=== PATIENT | female | born 1945 | race Caucasian/White ===

== ENCOUNTER → 2017-10-13 17:45 | Outpatient (CLI) | payer MEDICARE, SELFPAY ==
[2017-10-13 17:47] LABS: Bacteria 0 SEEN /hpf (None Seen); Mucous, Urine 0 SEEN /hpf (<or=2+); Red Blood Cells-Urine 0 SEEN /hpf (0-5); Squamous Epithelial Cells - UA 0 SEEN /hpf (5-10); White Blood Cells 0 SEEN /hpf (0-5)
[2017-10-13 18:26] LABS: Color, Urine Yellow (Yellow); Glucose, Dipstick Normal (Normal); Ketone-Dipstick Negative (Negative); Leukocyte Esterase-Dipstick Negative /ul (Negative); Nitrite-Dipstick Negative (Negative); Occult Blood-Urine Negative /ul (Negative); Protein-Dipstick Negative (Negative); Urine Bilirubin Dipstick Negative (Negative); Urine Clarity Clear (Clear); Urine Urobilinogen Normal (Normal)
== END ==
PROVIDERS: Family Provider Family Medicine; PCP Family Medicine; Visit Provider Physician Assistant Medical
DX: N39.0 Urinary tract infection, site not specified (principal)
CPT/HCPCS: 81001; 87086; 87088

== ENCOUNTER → 2017-11-10 09:18 | Outpatient (CLI) | payer MEDICARE, SELFPAY ==
--- NOTE | 2017-11-10 09:33 | MRI_ITS ---
STUDY: MRI THORACIC SPINE WITHOUT CONTRAST REASON FOR EXAM: Female, 72 years old. Back pain with radicular symptoms to the left shoulder for 18 months. TECHNIQUE: Standardized fat and water weighted pulse sequences were obtained in the sagittal and axial planes. Several images are limited by patient motion. COMPARISON: CT of the chest dated August 10, 2017. FINDINGS: Normal kyphosis of the thoracic spine. There is no substantial scoliosis. T1-2, T2-3, T3-4, T4-5, T5-6, T6-7, T7-8, T8-9, T9-10, T10-11, T11-12: There appear to be a subtle abnormal signal the endplates of. The there may be acute Modic changes at T7-8. There is a focus of abnormal signal within the T10 vertebral body. This is bright on the T2-weighted images and has decreased T1 signal. This may represent a hemangioma. There is a large Schmorl's node of the superior endplate T12 with probable mild compression fracture. This has appearance of an old fracture. There is a focal left central disc protrusion at T6-7. The discs have generally normal MR appearance otherwise. The neural foramina are patent. There is no significant central acquired canal stenosis..There is no disc herniation. Normal visualized thoracic cord. Normal conus medullaris that terminates at the L1 level.. There are areas of abnormal signal within the liver, the largest of which is incompletely visualized on this study. MRI/Spine Thoracic (Routine) IMPRESSION: 1. 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 2. Probably old mild compression fracture of T12. 3. Large incompletely imaged liver cyst. Electronically Signed: Shamika Toht MD at 13:26 EDT , Service support ,
== END ==
PROVIDERS: Family Provider Family Medicine; PCP Family Medicine; Visit Provider Family Medicine
DX: M71.38 Other bursal cyst, other site (principal); M51.34 Other intervertebral disc degeneration, thoracic region
CPT/HCPCS: 72146

== ENCOUNTER → 2018-01-08 09:26 | Outpatient (CLI) | payer MEDICARE, SELFPAY ==
[2018-01-08 12:09] LABS: Absolute Lymphocyte Count 0.96 X10^3/ul (0.83-4.51); Absolute Neutrophil Count 3.1 X10^3/uL (2.0-7.7); Basophil# 0.03 X10^3/uL; Basophil% 0.7 % (0-1); Eosinophil# 0.04 X10^3/uL; Eosinophils% 0.9 % (0-5); Hematocrit 46.5 % (37-47); Hemoglobin 15.4 g/dl (12.0-15.0); Lymphocyte # 0.96 X10^3/ul (4.0); Lymphocyte % 21.7 % (19-41); Mean Corp Hgb Conc 33.1 g/gl (32-36); Mean Corpuscular Hgb 30.7 pg (27.0-32.0); Mean Corpuscular Volume 92.8 fL (81-99); Mean Platelet Vol. 10.3 fl (6.2-12.0); Monocyte# 0.34 X10^3/uL; Monocyte% 7.7 % (0-10); Neutrophil # 3.05 X10^3/uL (2.7-7.7); Neutrophil % 68.8 % (47-70); Platelet Count 232 K/mm3 (150-450); RBC Distribution Width CV 13.5 % (11.6-14.6); RBC Distribution Width SD 44.4 fl (35.1-43.9); Red Blood Count 5.01 M/mm3 (4.2-5.4); White Blood Count 4.4 K/mm3 (4.4-11.0)
[2018-01-08 12:15] LABS: POSITIVE COUNT NO; POSITIVE DIFFERENTIAL NO; POSITIVE MORPHOLOGY NO
[2018-01-08 12:21] LABS: Vitamin D,25 Hydroxy 22.4 ng/mL (29.95-100.01)
[2018-01-08 12:46] LABS: Anion Gap 9 (5-15); BUN 15 mg/dL (7-18); BUN/Creat Ratio 17.8 RATIO (10-20); Calcium,Total 9.2 mg/dL (8.5-10.1); Chloride 104 mmol/L (98-107); Creatinine, Serum 0.84 mg/dL (0.55-1.02); EST Glomerular Filtration Rate 70 mL/min (>60); Est Glom Filt Rate - Afr Amer 85 mL/min (>60); Glucose 104 mg/dL (74-106); Potassium 4.1 mmol/L (3.5-5.1); Sodium Level 139 mmol/L (136-145); Thyroid Stim Hormone (TSH) 1.95 uIU/mL (0.358-3.74)
[2018-01-08 12:56] LABS: Hemoglobin A1c 5.9 % (4.2-6.3)
== END ==
PROVIDERS: Family Provider Family Medicine; PCP Family Medicine; Visit Provider Family Medicine
DX: S22.080A Wedge compression fracture of T11-T12 vertebra, initial encounter for closed fracture (principal); E04.1 Nontoxic single thyroid nodule; R91.1 Solitary pulmonary nodule; R73.01 Impaired fasting glucose; E55.9 Vitamin D deficiency, unspecified
CPT/HCPCS: 36415; 80048; 82306; 83036; 84439; 84443; 85025

== ENCOUNTER → 2018-01-16 13:27 | Outpatient (CLI) | payer MEDICARE, SELFPAY ==
--- NOTE | 2018-01-16 13:30 | US_ITS ---
STUDY: THYROID ULTRASOUND REASON FOR EXAM: Female, 73 years old. Thyroid nodules TECHNIQUE: Ultrasound evaluation of the thyroid was performed with real-time and static carranza-scale imaging. COMPARISON: CT chest 08/10/2017. FINDINGS: On prior CT scan, hypoattenuating sharply circumscribed oval nodule of the left thyroid inferior pole with AP dimension measuring about 16.5 mm. The craniocaudal dimension was approximately 1.79 cm, and the transverse dimension approximately 1.3 cm. RIGHT LOBE: 4.1 x 1.8 x 1.5 cm. Normal echotexture and vascularity. No nodules. LEFT LOBE: 4.4 x 1.6 x 1.1 cm. Normal background echotexture of the gland with normal vascularity. Hypoechoic sharply circumscribed oval nodule measures 16 x 18 x 8 mm, exhibits peripheral and internal vascular flow, small cystic spaces centrally, peripherally solid. ISTHMUS: The isthmus measures 4 mm normal echotexture. US/Thyroid IMPRESSION: Left thyroid nodule. 16 x 18 x 8 mm. Cystic and solid. According to the [place] Thy[employer] Guidelines for assessment of thyroid nodules this falls into the Low Suspicion sonographic pattern (5-10% risk). It does not appear to be substantially changed compared to prior CT imaging of July 2017. Based on the [place] Thyroid [employer] size criteria for Low Suspicion Pattern nodules, size greater than 1.5 cm, biopsy is recommended. Electronically Signed: Amarjit Mejia, at 16:10 EDT Tel , Service support ,
--- NOTE | 2018-01-16 14:30 | BD_ITS ---
STUDY: DUAL ENERGY X-RAY ABSORPTIOMETRY / DXA REASON FOR EXAM: Female, 73 years old. The patient is postmenopausal. Loss of height. TECHNIQUE: Bone Mineral Density (BMD) measurements of lumbar spine and bilateral hips were obtained. COMPARISON: Comparison is made with prior study dated July 17, 2001. FINDINGS: Lumbar Spine (L1-L4): g/cm2 (1.171) / T-score (-0.2) / Z-score (1.5) Findings are suggestive of normal bone density with a low fracture risk. Left Femur Total: g/cm2 (1.160) / T-score (1.2) / Z-score (2.9) Left Femoral Neck: g/cm2 (0.976) / T-score (-0.4) / Z-score (1.4) Right Femur Total: g/cm2 (1.051) / T-score (0.3) / Z-score (2.0) Right Femoral Neck: g/cm2 (0.947) / T-score (-0.7) / Z-score (1.2) The T-Scores on the most recent prior examination were: Lumbar Spine (L1-L4): There has been improvement of bone density since the previous examination. Left Femur Total: which represents a worsening of 5.5%. BD/Dexa Bone Density Study IMPRESSION: The patient is considered normal as outlined below according to World [employer] Organization (WHO) criteria with a low fracture risk. There has been worsening of bone density since the previous examination. Reference Information: The T-score is the number of standard deviations above or below the standard which is normal for young adults at their peak bone mineral density. The World Health Organization (WHO) interprets the T-scores as follows: Above -1 Normal bone density Between -1 and -2.5 Osteopenia Equal to / or below -2.5 Osteoporosis As a practical clinical guideline, osteopenia may be graded as follows: Mild -1 through -1.5 Moderate -1.6 through -2.0 Severe -2.1 through -2.4 The Z-score is the number of standard deviations above or below age-matched controls. A Z-score of less than -1.5 would be considered abnormal. References: 1. NIH Osteoporosis and Related Bone Diseases http://www.osteo.org 2. International Society for Clinical Densitometry http://www.iscd.org 3. National Osteoporosis Foundation http://www.nof.org Electronically Signed: Ab Peck MD at 15:40 EDT Tel [phone], Service support ,
== END ==
PROVIDERS: Family Provider Family Medicine; PCP Family Medicine; Visit Provider Family Medicine
DX: S22.080A Wedge compression fracture of T11-T12 vertebra, initial encounter for closed fracture (principal); E04.1 Nontoxic single thyroid nodule
CPT/HCPCS: 76536; 77080

== ENCOUNTER → 2018-02-14 13:30 | Outpatient (CLI) | payer MEDICARE, SELFPAY ==
--- NOTE | 2018-02-14 | ASPS_PTH ---
PATIENT: BEKAH RUEDA LOC: [facility] U#:[id number] AGE/SX: 80/F ROOM: RE02/14/[address]: Dr. Luis Felipe Ravi MD : 1945 BED: DIS: SPEC #: [id number] RECD: 02/15/18 11:33 STATUS: SUZI SAENZ #: [id number] JC: 02/14/18 00:[address]: Luis Felipe Ravi DEPT: CYTOLOGY RECD BY: Guerrero Garg ENTERED: 02/15/18 11:34 SP TYPE: ASPIRATION OTHR DR: Dr. Linwood Spain MD Tissues: Thyroid gland, NOS Procedures: Pap Stain (control) Special Stain Group II Cytology Other HEADER OPERATION: Left thyroid FNA PRE-OP DIAGNOSIS: Left thyroid nodules TISSUE SUBMITTED: Left thyroid slides (8) DIAGNOSIS CYTOLOGY Left thyroid nodule, FNA (smears): Consistent with benign follicular nodule. See cytology study and comment. SJ:trudi 02/16/18 COMMENT Correlation with clinical, radiologic findings and appropriate follow up are necessary. CYTOLOGY STUDY Slides are reviewed. The specimen is adequate for evaluation. The specimen consists of benign follicular cells. CYTOLOGY GROSS Received are eight smears labeled with the patient's name and designated per the requisition as left thyroid. Submitted for staining. 02/15/18 TC:5 [facility]: [id number]
== END ==
PROVIDERS: Family Provider Family Medicine; PCP Family Medicine; Visit Provider Surgery
DX: E04.1 Nontoxic single thyroid nodule (principal)
CPT/HCPCS: 88161; 88313

== ENCOUNTER → 2018-02-21 16:41 | Outpatient (CLI) | payer MEDICARE, SELFPAY ==
--- NOTE | 2018-02-21 | LES_PTH ---
PATIENT: BEKAH RUEDA LOC: [facility] U#:[id number] AGE/SX: 80/F ROOM: RE02/21/[address]: Dr. Luis Felipe Ravi MD : 1945 BED: DIS: SPEC #: [id number] RECD: 02/21/18 16:32 STATUS: SUZI DANY #: [id number] JC: 02/21/18 00:[address]: Luis Felipe Ravi DEPT: SURGICAL PATHOLOGY RECD BY: Amarjit Contreras ENTERED: 02/22/18 07:07 SP TYPE: Lesion OTHR DR: Dr. Linwood Spain MD Tissues: Skin of back, NOS Procedures: Surgery Specimen Level IV HEADER OPERATION: Punch biopsy back lesion PRE-OP DIAGNOSIS: Uncertain neoplasm of back TISSUE SUBMITTED: Back tissue punch biopsy MICROSCOPIC DIAGNOSIS Back lesion, punch biopsy: Malignant melanoma, invasive. See synoptic report and comment. Synoptic report: Histologic type ? superficial spreading. Breslow thickness ? 1.15 mm Ulceration ? absent Mitotic rate ? 2/mm2 Tumor infiltrating lymphocytes ? present, nonbrisk. Regression ? absent Perineural invasion ? absent Vascular invasion ? absent Tumor distance to nearest margin: Deep ? negative Lateral ? positive. SJ:trudi 03/05/18 COMMENT If this biopsy is a part of a larger lesion, the findings in this specimen may not be telemarketing representative of the entire lesion. Submitted level sections and immunostains for S100, Ripley-1, CK5/6 and P40 have been reviewed. This case is sent to [facility] for expert opinion and reviewed by Dr. Montoya and the above diagnosis is rendered, complete report is viewable in patient?s EMR.. Case has been reviewed in consultation with Dr. Kee who concurs with the above diagnosis. IDC:AM MICROSCOPIC DESCRIPTION Slides are reviewed. GROSS DESCRIPTION Received in fixative is one container labeled with the patient's name and designated punch biopsy back. The specimen consists of a punch biopsy of reynolds-brown skin measuring 0.5 cm in diameter and 0.5 cm in length. The specimen is inked and submitted entirely in one cassette. It will be bisected at the time of embedding. / ZO:mayur 02/22/18 TC:0 CPT: 39481
--- NOTE | 2018-02-21 | IMM_PTH ---
PATIENT: BEKAH RUEDA LOC: [facility] U#:[id number] AGE/SX: 80/F ROOM: RE02/21/[address]: Dr. Luis Felipe Ravi MD : 1945 BED: DIS: SPEC #: [id number] RECD: 02/23/18 10:30 STATUS: SUZI DANY #: [id number] JC: 02/21/18 00:[address]: Luis Felipe Ravi DEPT: IMMUNOHISTOCHEMISTRY RECD BY: Pablito Lopez ENTERED: 02/23/18 10:31 SP TYPE: IMMUNO OTHR DR: Dr. Linwood Spain MD Tissues: Skin of back, NOS Procedures: CK5-6 (initial) MART1 (add) P40 (add) S-100 (add) PHYSICIAN & INSTITUTION [facility] [id number] SPECIMEN INFORMATION: Tissue Source: Back tissue-punch biopsy Clinical Info: Uncertain neoplasm of back Specimen Number: [id number] CPT code: 11462, [id number] METHODOLOGY: Deparaffinized sections of prefer/formalin-fixed tissue or PAP/DQ stained slides are incubated with monoclonal/polyclonal antibodies/oligonucleotide probes. Localization is made via biotin free immunoperoxidase method. Appropriate controls are performed and reacted as expected. Results on target cell population are indicated in the following table: RESULTS: ANTIBODY / CLONE RESULT P40 (BC28) negative CK5-6 (D5 & 1684) negative S-100 (4C4.9) positive MART-1 (A-103) positive These tests were developed and their performance characteristics determined by [facility]. They may not have been cleared or approved by the U.S. Food and Drug Administration. The FDA has determined that such clearance or approval is not necessary. INTERPRETATION: Back tissue, punch biopsy: Malignant melanoma, invasive. SJ:trudi 03/05/18 Comment: This case is sent to [facility] for expert opinion and reviewed by Dr. Montoya and the above diagnosis is rendered. Case has been reviewed in consultation with Dr. Kee who concurs with the above diagnosis. IDC:AM
== END ==
PROVIDERS: Family Provider Family Medicine; PCP Family Medicine; Visit Provider Surgery
DX: D48.7 Neoplasm of uncertain behavior of other specified sites (principal)
CPT/HCPCS: 88305; 88341; 88342

== ENCOUNTER → 2018-03-08 16:54 | Outpatient (CLI) | payer MEDICARE, SELFPAY ==
--- NOTE | 2018-03-08 16:56 | CT_ITS ---
STUDY: CT CHEST WITHOUT CONTRAST REASON FOR EXAM: Female, 73 years old. Lung nodule RADIATION DOSAGE (If Supplied By Facility): CTDIvol = ( 16.14 ) mGy, DLP = ( 580.88 ) mGycm TECHNIQUE: Transaxial imaging was performed without the administration of intravenous contrast material. Multiplanar coronal and sagittal images were reformatted. Individualized dose optimization techniques were used for this CT. COMPARISON: 08/10/2017 FINDINGS: Lung windows show a stable 1 cm noncalcified nodule in the right lung base adjacent to the posterior hemidiaphragm. It is seen on axial image 79 and today's study. No other suspicious noncalcified mass or nodule is noted. There is a stable 1.3 cm calcified granuloma in the left lung base. Soft tissue windows show stable 1.6 cm hypodense nodule in the left thyroid lobe. There are stable subcentimeter axillary and mediastinal lymph nodes. No pleural or pericardial effusions, there are calcified coronary vessels. Limited cuts through the upper abdomen show a stable 3.3 cm cyst in the left lobe of the liver. Bony structures show degenerative change CT/Chest without Contrast IMPRESSION: Stable appearance of a well-defined noncalcified 1 cm nodule in the right lower lobe on axial image 79. Another six-month follow-up is recommended to assure stability. Calcified 1.3 cm granuloma in the left lung base No pleural or pericardial effusions Calcified coronary vessels Degenerative bony changes Electronically Signed: Jesús Disla MD at 9:38 EDT , Service support ,
== END ==
PROVIDERS: Family Provider Family Medicine; PCP Family Medicine; Visit Provider Family Medicine
DX: R91.1 Solitary pulmonary nodule (principal)
CPT/HCPCS: 71250

== ENCOUNTER → 2020-11-17 08:36 | Outpatient (CLI) | payer MEDICARE, SELFPAY ==
[2020-11-17 10:37] LABS: Glucose 116 mg/dL (74-106)
[2020-11-17 10:40] LABS: Vitamin D,25 Hydroxy 40.2 ng/mL
[2020-11-17 10:44] LABS: Hemoglobin A1c 5.8 % (3.8-5.6)
== END ==
PROVIDERS: PCP Family Medicine; Referring Provider Family Medicine; Visit Provider Family Medicine
DX: I10 Essential (primary) hypertension (principal); E55.9 Vitamin D deficiency, unspecified; R30.0 Dysuria
CPT/HCPCS: 36415; 82306; 82947; 83036; 87086; 87088; 87186

== ENCOUNTER → 2023-03-20 | Outpatient (CLI) | payer MEDICARE, SELFPAY ==
[2023-03-20 12:58] LABS: Absolute Lymphocyte Count 0.86 X10^3/uL (0.83-4.51); Absolute Neutrophil Count 4.8 X10^3/uL (2.0-7.7); Basophil# 0.06 X10^3/uL; Basophil% 0.9 % (0-1); Eosinophil# 0.16 X10^3/uL; Eosinophils% 2.5 % (0-5); Hematocrit 48.9 % (37-47); Hemoglobin 15.5 g/dL (12.0-15.0); Lymphocyte # 0.86 X10^3/ul (0.83-4.51); Lymphocyte % 13.5 % (19-41); Mean Corp Hgb Conc 31.7 g/dL (32-36); Mean Corpuscular Hgb 29.7 pg (27.0-32.0); Mean Corpuscular Volume 93.7 fL (81-99); Monocyte# 0.52 X10^3/uL; Monocyte% 8.1 % (0-10); NRBC Flagged by Analyzer 0 % (0-5); Neutrophil # 4.77 X10^3/uL (2.7-7.7); Neutrophil % 74.7 % (47-70); Platelet Count 228 K/mm3 (150-450); RBC Distribution Width CV 13.2 % (11.6-14.6); RBC Distribution Width SD 45.1 fl (35.1-43.9); Red Blood Count 5.22 M/mm3 (4.2-5.4); White Blood Count 6.4 K/mm3 (4.4-11.0)
[2023-03-20 13:36] LABS: Vitamin D,25 Hydroxy 62.6 ng/mL
[2023-03-20 13:39] LABS: AST(SGOT) 20 U/L (15-37); Alanine Aminotransfer ALT/SGPT 34 U/L (13-56); Alkaline Phosphatase 110 U/L (45-117); Anion Gap 7 (5-15); BUN 13 mg/dL (7-18); BUN/Creat Ratio 17.3 RATIO (10-20); Calcium,Total 9.1 mg/dL (8.5-10.1); Chloride 104 mmol/L (98-107); Cholesterol 194 mg/dL (200); Creatinine, Serum 0.75 mg/dL (0.55-1.02); EST Glomerular Filtration Rate 79 mL/min (>60); Est Glom Filt Rate - Afr Amer 96 mL/min (>60); Globulin 3.9 g/dL (2.2-4.2); Glucose 116 mg/dL (74-106); High Density Lipoprotein 35 mg/dL; Potassium 4.1 mmol/L (3.5-5.1); Protein, Total 7.9 g/dL (6.4-8.2); Sodium Level 137 mmol/L (136-145); T4 Free Direct 1.03 ng/dL (0.76-1.46); Thyroid Stim Hormone (TSH) 2.05 uIU/mL (0.358-3.74); Triglycerides 214 mg/dL; Very Low Density Lipoprotein 43 mg/dL (5-40)
== END | disposition home or self-care (01) ==
LOC: BFHLAB 09:00
PROVIDERS: PCP Nurse Practitioner Family; Referring Provider Nurse Practitioner Family; Visit Provider Nurse Practitioner Family
DX: E55.9 Vitamin D deficiency, unspecified (principal); I10 Essential (primary) hypertension; E04.1 Nontoxic single thyroid nodule
CPT/HCPCS: 36415; 80053; 80061; 82306; 84439; 84443; 85025

== ENCOUNTER → 2023-05-24 | Outpatient (CLI) | payer MEDICARE, SELFPAY | END | disposition home or self-care (01) | PROVIDERS: PCP Nurse Practitioner Family; Referring Provider Nurse Practitioner Family; Visit Provider Nurse Practitioner Family | DX: N64.52 Nipple discharge (principal) | CPT/HCPCS: 87070; 87077; 87205 ==

== ENCOUNTER → 2023-06-06 | Outpatient (CLI) | payer MEDICARE, SELFPAY ==
--- NOTE | 2023-06-06 14:08 | BI_ITS ---
MAMMOGRAPHY - BILATERAL DIAGNOSTIC REASON FOR EXAM: Female, 78 years old. RT NIPPLE DISCHARGE PERTINENT HISTORY: Non-contributory. TECHNIQUE: Digital examination. Mediolateral oblique (MLO) and craniocaudad (CC) views of both breasts were obtained. CAD: CAD was performed on this study. COMPARISON: 02/01/2017 FINDINGS: Breast Composition: The breasts are heterogeneously dense, which may obscure small masses. There are no dominant masses or suspicious calcifications. No other significant abnormalities are identified. BI/DIAG MAMM W/CAD, BILAT IMPRESSION: Stable bilateral diagnostic mammogram. Galactogram would be useful for bloody nipple discharge. ASSESSMENT CATEGORY: BIRADS Category 0: Incomplete. Need additional imaging evaluation. A letter regarding these results will be sent to the patient by the facility within 30 days. FOLLOW UP RECOMMENDATION: Additional Views are Recommended. (E) Approximately 10% of breast cancers are not detected by mammography. A normal mammogram should not delay biopsy of a clinically suspicious abnormality. Electronically Signed: Amarjit Fields MD at 14:53 EDT ,
== END | disposition home or self-care (01) ==
LOC: OPBI 14:06
PROVIDERS: PCP Nurse Practitioner Family; Referring Provider Nurse Practitioner Family; Visit Provider Nurse Practitioner Family
DX: N64.52 Nipple discharge (principal)
CPT/HCPCS: 77062; 77066; G0279

== ENCOUNTER → 2025-04-07 | Outpatient (CLI) | payer MEDICARE, SELFPAY ==
[2025-04-07 15:21] LABS: Hematocrit 43.7 % (37-47); Hemoglobin 14.5 g/dL (12.0-15.0); Immature Granulocytes Count 0.020 X10^3/uL (0.0-0.0); Mean Corp Hgb Conc 33.2 g/dL (32-36); Mean Corpuscular Volume 90.3 fL (81-99); Mean Platelet Vol. 10.9 fl (6.2-12.0); NRBC Flagged by Analyzer 0 % (0-5); Platelet Count 264 K/mm3 (150-450); RBC Distribution Width CV 13.1 % (11.6-14.6); RBC Distribution Width SD 43.3 fl (35.1-43.9); Red Blood Count 4.84 M/mm3 (4.2-5.4); White Blood Count 6.7 K/mm3 (4.4-11.0)
[2025-04-07 16:08] LABS: AST(SGOT) 21 U/L (<=31); Alanine Aminotransfer ALT/SGPT 19 U/L (<=34); Albumin, Serum 4.3 g/dL (3.4-4.8); Alkaline Phosphatase 90 U/L (35-104); Anion Gap 13 (5-15); BUN 12 mg/dL (4-19); BUN/Creat Ratio 16.3 RATIO (10-20); Calcium,Total 9.7 mg/dL (7.6-11.0); Carbon Dioxide 23.6 mmol/L (21.0-32.0); Chloride 102 mmol/L (98-108); Cholesterol 182 mg/dL (<=200); Globulin 3.0 g/dL (2.2-4.2); Glucose 99 mg/dL (70-99); Low Density Lipoprotein Calc. 107 mg/dL; Potassium 4.3 mmol/L (3.3-5.1); Triglycerides 198 mg/dL; Very Low Density Lipoprotein 40 mg/dL (5-40); cholesterol:hdl ratio screen 5.14
[2025-04-07 16:13] LABS: Vitamin D,25 Hydroxy 48.0 ng/mL (30-100)
== END | disposition home or self-care (01) ==
LOC: BFHLAB 13:15
PROVIDERS: PCP Nurse Practitioner Family; Visit Provider Nurse Practitioner Family
DX: E55.9 Vitamin D deficiency, unspecified (principal); I10 Essential (primary) hypertension; E78.5 Hyperlipidemia, unspecified
CPT/HCPCS: 36415; 80053; 80061; 82306; 84439; 84443; 85025